=== PATIENT | male | born 1985 | race American Indian/Alaskan Native ===

== ENCOUNTER 2022-05-27 14:35 | Emergency (ER) | payer SELFPAY ==
--- NOTE | 2022-05-27 14:51 | Emergency Department Report ---
Blank Doc - Documentation Documentation: 36-year-old male with history of cardiac presents with chest pain and shortness of breath. 1- This is a initial triage assessment/medical screening only. Full assessment and work-up will be completed once the patient is in proper hospital gown, ED bed and in a private room setting. This initial assessment/diagnostic orders/clinical plan/ treatment(s) is/are subject to change based on pt's health status, clinical progression and re-assessment by fellow clinical providers in the ED. Further treatment and workup at subsequent clinical providers discretion. Patient/guardians urged not to elope from ED as their condition may be serious if not clinically assessed and managed. 2-cardiac workup The patient was evaluated in the emergency department for symptoms described in the history of present illness. He/she was evaluated in the context of the global COVID-19 pandemic, which necessitated consideration that the patient might be at risk for infection with the virus that causes COVID-19. Institutional protocols and algorithms that pertain to the evaluation of pat ients at risk for COVID-19 are in a state of rapid change based on information released by regulatory bodies including the CDC and federal and state organizations. These policies and algorithms were followed during the patient's care in the emergency department. Please note that these policies, procedures and recommendations changed on a rapid basis.
--- NOTE | 2022-05-27 15:18 | XRay Report ---
CHEST 2 VIEWS INDICATION / CLINICAL INFORMATION: Chest Pain. COMPARISON: None available. FINDINGS: SUPPORT DEVICES: None. HEART / MEDIASTINUM: No significant abnormality. LUNGS / PLEURA: No significant pulmonary or pleural abnormality. No pneumothorax. ADDITIONAL FINDINGS: No significant additional findings. IMPRESSION: 1. No acute findings. Signer Name: Alex Wong MD Signed: 05/27/2022 3:14 PM Workstation Name: [id number]
[2022-05-27 15:59] LABS: Basophils # (Auto) 0.1 K/mm3 (0.0-0.1); Basophils % (Auto) 0.9 % (0.0-1.8); Eosinophils % (Auto) 0.3 % (0.0-4.3); Hematocrit 40.3 % (35.5-45.6); Hemoglobin 13.1 gm/dl (11.8-15.2); Lymphocytes # (Auto) 1.4 K/mm3 (1.2-5.4); Lymphocytes % (Auto) 24.1 % (13.4-35.0); Mean Corpuscular HGB Conc 33 % (32-34); Mean Corpuscular Volume 73 fl (84-94); Monocytes # (Auto) 0.5 K/mm3 (0.0-0.8); Platelet Count 357 K/mm3 (140-440); Red Cell Distribution Width 17.7 % (13.2-15.2)
[2022-05-27 16:12] LABS: Partial Thromboplastin Time 33.9 Sec. (24.2-36.6)
[2022-05-27 16:19] LABS: Alanine Aminotransferase 24 units/L (7-56); Albumin 4.7 g/dL (3.9-5); BUN/Creatinine Ratio 13; Blood Urea Nitrogen 12 mg/dL (9-20); Calcium 9.6 mg/dL (8.4-10.2); Hemolysis Index 23
[2022-05-27] MEDS ORDERED: ONDANSETRON 4 MG ODT TAB PO ONE (18:52)
[2022-05-27] MEDS ORDERED: KETOROLAC 10 MG TAB PO ONE (18:52)
--- NOTE | 2022-05-28 07:51 | Emergency Department Report ---
ED Chest Pain HPI - General Chief Complaint: Chest Pain Stated Complaint: CHEST PAIN PUI?: No Time Seen by Provider: 05/27/22 14:50 Source: patient Mode of arrival: Ambulatory Limitations: No Limitations - History of Present Illness Initial Comments: pt reports chest pain x1 hour and SOB. pt reports pain is radiating to left dominic ulder. pt reports taking a total of 4 nitro with mild relief. pt reports he flew yesterday for 25 hours total. no leg pain. MSE TO MAIN FOR FURTHER EVAL ORDERS PLACED MD Complaint: chest pain -: Sudden, hour(s) Onset: during rest Pain Location: substernal Severity: moderate Severity scale (0 -10): 10 Quality: tightness Consistency: intermittent Improves With: nothing Worsens With: nothing Context: recent travel re: nausea Treatments Prior to Arrival: nitroglycerin Aspirin use within the Past 7 Days: (1) Yes - Related Data On Oral Contraceptives: No Previous Rx's Medication Instructions Recorded Last Taken Type hydrOXYzine PAMOATE [Vistaril] 50 mg PO Q6HR PRN 5 Days #20 05/29/22 Unknown Rx capsule NS Allergies Allergy/AdvReac Type Severity Reaction Status Date / Time acetaminophen [From Tylenol] Allergy Anaphylaxis Verified 05/27/22 14:55 adhesive Allergy Rash Verified 05/27/22 14:55 aspirin Allergy Anaphylaxis Verified 05/27/22 14:55 iodine Allergy Anaphylaxis Verified 05/27/22 14:55 ketamine Allergy Anaphylaxis Verified 05/27/22 14:55 lactose Allergy Anaphylaxis Verified 05/27/22 14:55 NSAIDS (Non-Steroidal Allergy Anaphylaxis Verified 05/27/22 14:55 Anti-Inflamma pork derived (porcine) Allergy Anaphylaxis Verified 05/27/22 14:55 Pork/Porcine Containing Allergy Anaphylaxis Verified 05/27/22 14:55 Products propofol Allergy Anaphylaxis Verified 05/27/22 14:55 tramadol Allergy Anaphylaxis Verified 05/27/22 14:55 Heart Score - HEART Score History: Slightly suspicious EKG: Normal Age: < 45 Risk factors: 1-2 risk factors Troponin: < normal limit HEART Score: 1 - EKG Read Time Time EKG Completed: 14:50 EKG Read Time: 14:50 ED Review of Systems ROS: Stated complaint: CHEST PAIN Other details as noted in HPI Comment: All other systems reviewed and negative ED Past Medical Hx - Past Medical History Previous Medical History?: Yes - Surgical History Past Surgical History?: Yes - Family History Family history: no significant - Social History Smoking Status: Current Every Day Smoker Substance Use Type: Alcohol - Medications Home Medications: Home Medications Medication Instructions Recorded Confirmed Last Taken Type hydrOXYzine PAMOATE [Vistaril] 50 mg PO Q6HR PRN 5 Days #20 05/29/22 Unknown Rx capsule NS ED Physical Exam - General Limitations: No Limitations General appearance: alert, in no apparent distress - Head Head exam: Present: atraumatic, normocephalic - Eye Eye exam: Present: normal appearance - ENT ENT exam: Present: mucous membranes moist - Neck Neck exam: Present: normal inspection - Respiratory Respiratory exam: Present: normal lung sounds bilaterally. Absent: respiratory distress - Cardiovascular Cardiovascular Exam: Present: regular rate, normal rhythm. Absent: systolic murmur, diastolic murmur, rubs, gallop - GI/Abdominal GI/Abdominal exam: Present: soft, normal bowel sounds - Rectal Rectal exam: Present: deferred - Extremities Exam Extremities exam: Present: normal inspection - Back Exam Back exam: Present: normal inspection - Neurological Exam Neurological exam: Present: alert, oriented X3 - Psychiatric Psychiatric exam: Present: normal affect, normal mood - Skin Skin exam: Present: warm, dry, intact, normal color. Absent: rash ED Course Vital Signs 05/27/22 05/27/22 05/28/22 14:49 23:44 07:23 Temperature 98.9 F 98 F Pulse Rate 96 H 92 H 62 Respiratory 24 16 14 Rate Blood Pressure 150/69 125/65 111/50 [Right] O2 Sat by Pulse 100 100 100 Oximetry 05/29/22 05/29/22 01:49 04:36 Temperature Pulse Rate 62 Respiratory 16 14 Rate Blood Pressure 111/60 [Right] O2 Sat by Pulse 100 Oximetry DALLAS score - Dallas Score Age > 65: (0) No Aspirin use within the Past 7 Days: (1) Yes 3 or more CAD Risk Factors: (0) No 2 or more Angina events in past 24 hrs: (0) No Known CAD with more than 50% Stenosis: (0) No Elevated Cardiac Markers: (0) No ST Deviation Greater than 0.5mm: (0) No DALLAS Score: 1 ED Medical Decision Making - Lab Data Result diagrams: 05/27/22 15:19 08/22/22 15:19 - EKG Data -: EKG Interpreted by Hi EKG shows normal: sinus rhythm Rate: normal - EKG Data When compared to previous EKG there are: no significant change Interpretation: no acute changes - Radiology Data Radiology results: report reviewed, image reviewed - Medical Decision Making Labs 05/27/22 05/27/22 05/27/22 15:19 15:19 15:19 WBC 6.0 RBC 5.50 H Hgb 13.1 Hct 40.3 MCV 73 L MCH 24 L MCHC 33 RDW 17.7 H Plt Count 357 Lymph % (Auto) 24.1 Travis % (Auto) 9.0 H Eos % (Auto) 0.3 Baso % (Auto) 0.9 Lymph # (Auto) 1.4 Travis # (Auto) 0.5 Eos # (Auto) 0.0 Baso # (Auto) 0.1 Seg Neutrophils % 65.7 Seg Neutrophils # 3.9 PT 14.3 INR 1.00 APTT 33.9 D-Dimer Sodium 135 L Potassium 4.1 Chloride 100.1 Carbon Dioxide 21 L Anion Gap 18 BUN 12 Creatinine 0.9 Estimated GFR > 60 BUN/Creatinine Ratio 13 Glucose 81 Calcium 9.6 Total Bilirubin 0.40 AST 14 ALT 24 Alkaline Phosphatase 96 Troponin T < 0.010 Total Protein 7.3 Albumin 4.7 Albumin/Globulin Ratio 1.8 05/27/22 05/29/22 17:41 00:53 WBC RBC Hgb Hct MCV MCH MCHC RDW Plt Count Lymph % (Auto) Travis % (Auto) Eos % (Auto) Baso % (Auto) Lymph # (Auto) Travis # (Auto) Eos # (Auto) Baso # (Auto) Seg Neutrophils % Seg Neutrophils # PT INR APTT D-Dimer < 135 Sodium Potassium Chloride Carbon Dioxide Anion Gap BUN Creatinine Estimated GFR BUN/Creatinine Ratio Glucose Calcium Total Bilirubin AST ALT Alkaline Phosphatase Troponin T < 0.010 Total Protein Albumin Albumin/Globulin Ratio Vital Signs 05/27/22 05/27/22 05/28/22 14:49 23:44 07:23 Temperature 98.9 F 98 F Pulse Rate 96 H 92 H 62 Respiratory 24 16 14 Rate Blood Pressure 150/69 125/65 111/50 [Right] O2 Sat by Pulse 100 100 100 Oximetry 05/29/22 05/29/22 01:49 04:36 Temperature Pulse Rate 62 Respiratory 16 14 Rate Blood Pressure 111/60 [Right] O2 Sat by Pulse 100 Oximetry - Differential Diagnosis RO ACS Critical care attestation.: If time is entered above; I have spent that time in minutes in the direct care of this critically ill patient, excluding procedure time. ED Disposition Clinical Impression: Non-cardiac chest pain Disposition: HOME / SELF CARE / HOMELESS Is pt being admited?: No Does the pt Need Aspirin: No Condition: Stable Instructions: Nonspecific Chest Pain, Adult, [id number] Additional Instructions: Take your new medication as prescribed to help your discomfort that is likely noncardiac You did have unremarkable cardiac work-up today Call and schedule follow-up with your primary doctor in the next 3 to 5 days for progress Please do not hesitate to call or return to emergency if your symptoms worsen Prescriptions: hydrOXYzine PAMOATE [Vistaril] 50 mg PO Q6HR PRN 5 Days #20 capsule NS PRN Reason: Pain , Severe (7-10) Referrals: NATA BRADLEY MD [Primary Care Provider] - 3-5 Days
--- NOTE | 2022-05-28 08:39 | Electrocardiograph Report ---
[facility] Test Date: 2022-05-27 Test Time: 14:57:41 Pat Name: JERMAINE VELAZQUEZ Department: Room: Gender: M [employer]: ARIELA : 1985 Requested By: NICOLE MONREAL Order Number: [id number] Reading MD: Derrick Acevedo Measurements Intervals [place] Rate: 91 P: 28 CO: 153 QRS: 0 QRSD: 87 T: QT: 334 QTc: 410 Interpretive Statements Sinus rhythm Nonspecific T abnormalities, inferior leads ST elev, probable normal early repol pattern No previous ECG available for comparison Electronically Signed On 05-28-2022 8:38:32 EDT by Derrick Acevedo
--- NOTE | 2022-05-29 00:27 | Emergency Department Report ---
ED Chest Pain HPI - General Chief Complaint: Chest Pain Stated Complaint: CHEST PAIN Time Seen by Provider: 05/27/22 14:50 Source: patient Mode of arrival: Ambulatory Limitations: No Limitations - History of Present Illness Initial Comments: 36 yo M with multiple medical history including CAD with CHF and PE who present with chest pain that is started 2 days ago and progressively getting wrong. Pt just got off the plane. No fever or chills. No sob or palpitation. No other modifying or associated factors. Severity scale (0 -10): 10 - Related Data Previous Rx's Medication Instructions Recorded Last Taken Type hydrOXYzine PAMOATE [Vistaril] 50 mg PO Q6HR PRN 5 Days #20 05/29/22 Unknown Rx capsule NS Allergies Allergy/AdvReac Type Severity Reaction Status Date / Time acetaminophen [From Tylenol] Allergy Anaphylaxis Verified 05/27/22 14:55 adhesive Allergy Rash Verified 05/27/22 14:55 aspirin Allergy Anaphylaxis Verified 05/27/22 14:55 iodine Allergy Anaphylaxis Verified 05/27/22 14:55 ketamine Allergy Anaphylaxis Verified 05/27/22 14:55 lactose Allergy Anaphylaxis Verified 05/27/22 14:55 NSAIDS (Non-Steroidal Allergy Anaphylaxis Verified 05/27/22 14:55 Anti-Inflamma pork derived (porcine) Allergy Anaphylaxis Verified 05/27/22 14:55 Pork/Porcine Containing Allergy Anaphylaxis Verified 05/27/22 14:55 Products propofol Allergy Anaphylaxis Verified 05/27/22 14:55 tramadol Allergy Anaphylaxis Verified 05/27/22 14:55 Heart Score - HEART Score History: Highly suspicious EKG: Non-specific Age: < 45 Risk factors: > 3 risk factors or hx of atherosclerotic disease Troponin: < normal limit HEART Score: 5 - EKG Read Time Time EKG Completed: 14:57 EKG Read Time: 15:04 - Critical Actions Critical Actions: 4-6 pts:12-16.6% risk of adverse cardiac event. Should be admitted ED Review of Systems ROS: Stated complaint: CHEST PAIN Other details as noted in HPI Comment: All other systems reviewed and negative Cardiovascular: chest pain ED Past Medical Hx - Medications Home Medications: Home Medications Medication Instructions Recorded Confirmed Last Taken Type hydrOXYzine PAMOATE [Vistaril] 50 mg PO Q6HR PRN 5 Days #20 05/29/22 Unknown Rx capsule NS ED Physical Exam - General Limitations: No Limitations General appearance: alert, in no apparent distress - Head Head exam: Present: normal inspection - Eye Eye exam: Present: normal appearance Pupils: Present: normal accommodation - ENT ENT exam: Present: normal exam, normal orophraynx, mucous membranes dry - Neck Neck exam: Present: normal inspection, full ROM. Absent: tenderness - Respiratory Respiratory exam: Present: normal lung sounds bilaterally. Absent: respiratory distress, accessory muscle use - Cardiovascular Cardiovascular Exam: Present: regular rate, normal rhythm, normal heart sounds - GI/Abdominal GI/Abdominal exam: Present: soft, normal bowel sounds. Absent: distended, tenderness - Extremities Exam Extremities exam: Present: normal inspection, full ROM, normal capillary refill. Absent: pedal edema - Back Exam Back exam: Absent: tenderness - Neurological Exam Neurological exam: Present: alert, oriented X3 - Psychiatric Psychiatric exam: Present: normal affect, normal mood, anxious - Skin Skin exam: Present: warm, normal color ED Course Vital Signs 05/27/22 05/27/22 05/28/22 14:49 23:44 07:23 Temperature 98.9 F 98 F Pulse Rate 96 H 92 H 62 Respiratory 24 16 14 Rate Blood Pressure 150/69 125/65 111/50 [Right] O2 Sat by Pulse 100 100 100 Oximetry 05/29/22 01:49 Temperature Pulse Rate Respiratory 16 Rate Blood Pressure [Right] O2 Sat by Pulse Oximetry TED score - Ted Score Age > 65: (0) No Aspirin use within the Past 7 Days: (0) No 3 or more CAD Risk Factors: (1) Yes 2 or more Angina events in past 24 hrs: (0) No Known CAD with more than 50% Stenosis: (0) No Elevated Cardiac Markers: (0) No ST Deviation Greater than 0.5mm: (0) No TED Score: 1 ED Medical Decision Making - Lab Data Result diagrams: 05/27/22 15:19 05/27/22 15:19 - EKG Data EKG shows normal: sinus rhythm - EKG Data 05/29/22 00:30 Noted with normal sinus rhythm at a rate of [address] and T wave abnormality in this abnormal ECG. - Medical Decision Making Here with chest pain/pressure--differential could be but not limited to myocardial infarction, pulmonary embolism, costochondritis, anxiety, gastritis, GERD, pancreatitis, and or pyelonephritis--in order to rule out the above-- so will go ahead and order routine cardiopulmonary work-up that include troponin, EKG, chest x-ray, BNP, CKMB, and CBC, CMP and urinalysis for any correctable infectious process or electrolyte abnormality as a cause. Initial EKG noted with no acute ST elevated or depression Given morphine and nitro --patient reports some improvement with treatment Lab reviewed to be unremarkable including 2 serial troponin and D-dimer--this is likely noncardiac--patient reassured and DC home to close follow-up with his primary doctor. Critical care attestation.: If time is entered above; I have spent that time in minutes in the direct care of this critically ill patient, excluding procedure time. ED Disposition Clinical Impression: Non-cardiac chest pain Disposition: HOME / SELF CARE / HOMELESS Is pt being admited?: No Does the pt Need Aspirin: No Condition: Stable Instructions: Nonspecific Chest Pain, Adult, Iplc-[id number] Additional Instructions: Take your new medication as prescribed to help your discomfort that is likely noncardiac You did have unremarkable cardiac work-up today Call and schedule follow-up with your primary doctor in the next 3 to 5 days for progress Please do not hesitate to call or return to emergency if your symptoms worsen Prescriptions: hydrOXYzine PAMOATE [Vistaril] 50 mg PO Q6HR PRN 5 Days #20 capsule NS PRN Reason: Pain , Severe (7-10) Time of Disposition: 02:31
[2022-05-29] MEDS ORDERED: MORPHINE 4 MG/1 ML INJ IV ONE (00:32)
[2022-05-29 04:37] VITALS: BP 111/60
== END 2022-05-29 04:37 | disposition home or self-care (01) ==
LOC: ED 14:35
DX: R07.9 Chest pain, unspecified (principal); Z88.6 Allergy status to analgesic agent; Z91.014 Allergy to mammalian meats; Z91.09 Other allergy status, other than to drugs and biological substances
CPT/HCPCS: 36415; 71046; 80053; 84484; 85025; 85379; 85610; 85730; 93005; 96374; 99284; J2270; J3490; Q0162